=== PATIENT | female | born 1935 | race Caucasian/White ===

== ENCOUNTER 2022-11-16 09:06 | Emergency (ER) | payer MEDICARE, BC, SELFPAY ==
[2022-11-16] VITALS (7 sets, daily range): BP systolic 117–147; BP diastolic 70–80; PULSE 60–72; RESP 16; TEMP 36.8; O2SAT 97–100; BMI 21.5
--- NOTE | 2022-11-16 10:03 | ED_ITS ---
HPI - Chest Pain General Chief Complaint: Chest Pain Stated Complaint: chest pains last night Time Seen by Provider: 11/16/22 09:36 History of Present Illness HPI narrative: This 87-year-old female comes in reporting some occasions of chest or rib pain in the left lateral lower ribs that began last night as she was going to sleep. She states that the pain seemed to come and go and at times she could press on this area of her ribs and reproduce the pain. She denies having any nausea, vomiting, diaphoresis, or exercise intolerance. She states that she does have some COPD and has some occasions of lightheadedness and shortness of breath but this is not new for her. She does not report any particular injury event or strenuous activity recently. Again she states that she is able to ambulate stairs and do her normal activities without any symptoms. Currently she does not have any pain. She was able to find a spot at the time of my exam where she could reproduce the pain when pressing in her left lower lateral ribs. Related Data Home Medications Medication Instructions Recorded Confirmed warfarin 4 mg tablet mg PO 11/16/22 Allergies Allergy/AdvReac Type Severity Reaction Status Date / Time No Known Drug Allergies Allergy Verified 11/16/22 09:16 Review of Systems Status of ROS Reports: 10 or more systems reviewed and unremarkable except as noted in History and below Narrative Constitutional: No fevers, no weight gain or loss. Eyes: No discharge. No vision changes. HENT: No congestion, no sore throat, no ear pain. Cardiovascular: No palpitations. Respiratory: No shortness of breath, no wheezes, no cough. Gastrointestinal: No abdominal pain, no vomiting, no diarrhea. Genitourinary: No dysuria, no hematuria. Musculoskeletal: Normal range of motion. Skin: No rashes, no pruritis. Neurological: No dizziness, weakness, sensory change, speech change. Endo/Heme/Allergies: No bruising or bleeding. No polydipsia. Pysch: no suicidality, no anxiety, no insomnia. All other systems reviewed and are negative. PFSH PFSH Social History Smoking Status: Never smoker How often do you have a drink containing alcohol: monthly or less AUDIT-C Alcohol total score: 1 Non-prescribed substance use: denies use Exam Narrative Exam Narrative: Constitutional: Well-developed, well-nourished, no acute distress. HEENT: Normocephalic, atraumatic. Neck: Normal range of motion. Nontender. Supple. Heart: Regular. No murmurs. Normal rate. Intact distal pulses. Chest: Pain is reproducible with palpation in the left lateral lower ribs. Lungs: Clear to auscultation. No chest discomfort. No wheezes, rhonchi, or rales. Abdomen: Normal bowel sounds. Nontender. No rebound tenderness. Genitalia: Deferred. Back: No midline tenderness. Normal range of motion. Extremities: Normal range of motion. No injury. Skin: Intact. No rash. Warm. No erythema or pallor. Neurologic: No altered sensation. No weakness. Alert and oriented. Psychiatric: No suicidality. No anxiety or depression. No insomnia. Nursing notes and vitals signs are reviewed. Const Vital Signs, click to edit/add: Vital Signs - 24 hr 11/16/22 09:11 Temperature 98.2 F Pulse Rate [Left Pulse Oximeter] 72 Respiratory Rate 16 Blood Pressure [Right Upper Arm] 147/72 H Pulse Oximetry 100 Oxygen Delivery Method Room Air Course Vital Signs Vital signs: Initial Vital Signs Temperature 98.2 F 11/16/22 09:11 Temperature Source Temporal Artery Scan 11/16/22 09:11 Pulse Rate 72 11/16/22 09:11 Respiratory Rate 16 11/16/22 09:11 Blood Pressure 147/72 H 11/16/22 09:11 Blood Pressure Mean 97 11/16/22 09:11 Blood Pressure Position Sitting 11/16/22 09:11 Pulse Oximetry 100 11/16/22 09:11 Oxygen Delivery Method Room Air 11/16/22 09:11 Vital Signs Temperature 98.2 F 11/16/22 09:11 Pulse Rate 72 11/16/22 09:11 Respiratory Rate 16 11/16/22 09:11 Blood Pressure 147/72 H 11/16/22 09:11 Pulse Oximetry 100 11/16/22 09:11 Oxygen Delivery Method Room Air 11/16/22 09:11 Temperature 98.2 F 11/16/22 09:11 Pulse Rate 72 11/16/22 09:11 Respiratory Rate 16 11/16/22 09:11 Blood Pressure 147/72 H 11/16/22 09:11 Pulse Oximetry 100 11/16/22 09:11 Oxygen Delivery Method Room Air 11/16/22 09:11 MDM - Chest Pain MDM Narrative Medical decision making narrative: This patient comes in reporting episodes of chest discomfort that is rep roducible when palpating in her left lower lateral ribs. These symptoms began last night. She does not have any other associated symptoms and does not report any exercise intolerance. EKG today shows ventricular paced rhythm without any ST or T-wave abnormalities. Lab results also returned with reassuring findings. Her troponin returns at 0. At the time of discharge the patient appears safe for outpatient management. The treatment plan is reviewed along with written and verbal return precautions. Reasons to return and the importance of close followup were also reviewed. Lab Data Labs: Lab Results 11/16/22 Range/Units 10:21 WBC 3.48 L (4.50-11.00) K/uL RBC 4.59 (4.00-5.20) m/uL Hgb 14.0 (12.0-16.0) gm/dL Hct 41.8 (33.0-51.0) % MCV 91 (80-100) fL MCH 31 (26-34) pg MCHC 34 (32-36) gm/dL RDW Coeff of Guillaume 13.9 (11.5-15.5) % Plt Count 171 (140-440) K/uL Neut % (Auto) 62.0 (42.0-72.0) % Lymph % (Auto) 25.0 (20-44) % [place] % (Auto) 11.8 H (0.0-11.0) % Eos % (Auto) 0.6 (0.0-7.0) % Baso % (Auto) 0.6 (0.0-3.0) % Neut # (Auto) 2.20 (1.7-7.0) K/uL Lymph # (Auto) 0.90 (0.90-2.90) K/uL [place] # (Auto) 0.40 (0.00-0.90) K/UL Eos # (Auto) 0.00 (0.00-0.50) K/uL Baso # (Auto) 0.00 (0.00-0.30) K/uL Abs Immat Gran (auto) 0.00 (0.00-0.30) K/uL Imm/Tot Granulo (auto) 0.0 % Sodium 134 L (135-149) mmol/L Potassium 3.7 (3.6-5.1) mmol/L Chloride 101 (96-114) mmol/L Carbon Dioxide 26 (20-32) mmol/L BUN 16 (7-30) mg/dL Creatinine 0.6 (0.5-1.5) mg/dL Estimated Creat Clear 28.47 Estimated GFR 87 ml/min Glucose 84 (60-115) mg/dL Calcium 8.9 (8.4-10.6) mg/dL POC Troponin I 0.00 L (0.01-0.04) ng/ml ECG Data Attestation: I personally reviewed and interpreted this ECG as follows: Interpretation: Ventricular paced rhythm. Rate is 63 beats per minute. There are no specific ST or T-wave abnormalities. Discharge Plan Discharge Clinical Impression: Acute chest wall pain Patient Disposition: Home w/ Parent or Adult Condition: Stable Additional Instructions: Continue current plans. Use Tylenol as needed and directed. Activity as tolerated. Follow up with MD or return if worsening. Prescriptions: No Action warfarin 4 mg tablet PO Follow Up/Referrals: Generic,Amb Provider [Staff Physician] - Stand Alone Forms: MyHealth Info Instructions
[2022-11-16 10:29] LABS: Basophils Percent Auto 0.6 % (0.0-3.0); Eosinophils Percent Auto 0.6 % (0.0-7.0); Hematocrit 41.8 % (33.0-51.0); Mean Corpuscular HGB Conc 34 gm/dL (32-36); Mean Corpuscular Hemoglobin 31 pg (26-34); Mean Corpuscular Volume 91 fL (80-100); Monocytes Percent Auto 11.8 % (0.0-11.0); Platelet Count* 171 K/uL (140-440); RDW Coefficient of Variation % 13.9 % (11.5-15.5); Red Blood Count 4.59 m/uL (4.00-5.20); White Blood Count* 3.48 K/uL (4.50-11.00)
[2022-11-16 10:35] LABS: Slide Review Reflex No
[2022-11-16 10:43] LABS: Chloride* 101 mmol/L (96-114); Potassium* 3.7 mmol/L (3.6-5.1); Sodium* 134 mmol/L (135-149)
[2022-11-16 10:46] LABS: Blood Urea Nitrogen* 16 mg/dL (7-30); Calcium* 8.9 mg/dL (8.4-10.6); Carbon Dioxide* 26 mmol/L (20-32); Creatinine* 0.6 mg/dL (0.5-1.5); Est. Creatinine Clearance* 28.47; Estimated Glomerular Filt Rate 87 ml/min; Glucose* 84 mg/dL (60-115)
== END 2022-11-16 11:21 | disposition home or self-care (01) ==
PROVIDERS: Emergency Provider Emergency Medicine Emergency Medical Services; PCP Family Medicine
DX: R07.9 Chest pain, unspecified (principal)
CPT/HCPCS: 36415; 80048; 84484; 85025; 93005; 99284